=== PATIENT | male | born 1990 | race African-American/Black ===

== ENCOUNTER 2024-08-22 22:08 | Emergency (ER) | payer MEDICAID ==
[~2024-08-22] VITALS: Ht 177.8 cm; Wt 90.0 kg
[2024-08-22 22:13] VITALS: TEMP 36.9; O2SAT 98
[2024-08-22] MEDS: ACETAMINOPHEN 500MG TABLET PO ONE (22:53)
[2024-08-22] MEDS: KETOROLAC 15MG/ML VIAL IM ONE (23:37)
[2024-08-23] MEDS ORDERED: NAPR-1176 MT (00:12)
[2024-08-23 00:23] VITALS: BP 123/56; PULSE 68; RESP 15; O2SAT 97
== END 2024-08-23 00:24 | disposition home or self-care (01) ==
LOC: ER 22:08 → EDSEX 22:08 → ER 08-23 00:24
DX: S09.90XA Unspecified injury of head, initial encounter (principal); J45.909 Unspecified asthma, uncomplicated; Y04.0XXA Assault by unarmed brawl or fight, initial encounter; Y93.89 Activity, other specified; Y92.89 Other specified places as the place of occurrence of the external cause; Y99.8 Other external cause status
CPT/HCPCS: 99284; 70450; J1885